=== PATIENT | male | born 1955 | race Caucasian/White ===

== ENCOUNTER 2019-12-15 12:34 | Outpatient (CLI) | payer MEDICARE ==
--- NOTE | 2019-12-15 12:54 | ULT ---
EXAM: US Neck Soft Tissue PROVIDED CLINICAL HISTORY: Neck mass. COMPARISON: None FINDINGS: Limited sonographic evaluation left neck in region of the palpable abnormality was performed. There a re several oval-shaped hypoechoic masses in the left aspect of the neck largest measuring 3.3 cm x 1.2 cm x 1.7 cm likely due to enlarged lymph nodes. Typical echogenic hilum of these lymph nodes is n ot present. IMPRESSION: Enlarged hypoechoic lymph nodes left aspect of the neck likely corresponding to patient's palpable ab normality. CT scan of the neck with IV contrast is recommended for further evaluation.
== END 2019-12-15 12:35 | disposition home or self-care (01) ==
LOC: BICULT 12:34
PROVIDERS: ATTEND Family Medicine
DX: R22.1 Localized swelling, mass and lump, neck (principal)
CPT/HCPCS: 76536

== ENCOUNTER 2020-01-05 09:47 | Day surgery (SDC) | payer MEDICARE ==
[2020-01-04 10:01] VITALS: BMI 28.3
[2020-01-05] MEDS ORDERED: EPINEPHrine 1 MG/ML AMP ONE (11:37)
[2020-01-05] MEDS ORDERED: Fentanyl 250 MCG/5 ML VIAL ONE (11:41)
[2020-01-05] MEDS ORDERED: Dexamethasone 20 MG/5 ML VIAL ONE (12:26)
[2020-01-05] MEDS ORDERED: Rocuronium Bromide 10 MG/ML (10ML VIAL) ONE (12:26)
[2020-01-05] MEDS ORDERED: Glycopyrrolate 0.2 MG/ML 5 ML SYRINGE ONE (12:26)
[2020-01-05] MEDS ORDERED: Ketorolac Tromethamine 30 MG/ML VIAL ONE (12:26)
[2020-01-05] MEDS ORDERED: Ondansetron PF 4 MG/2 ML Vial ONE (12:26)
[2020-01-05] MEDS ORDERED: Lidocaine 1% PF 5 ML VIAL ONE (12:26)
[2020-01-05] MEDS ORDERED: PROPOFOL 200 MG/20 ML VIAL ONE (12:26)
--- NOTE | 2020-01-06 12:48 | OP ---
DATE OF PROCEDURE: 01/05/2020 PREOPERATIVE DIAGNOSIS: Right base of tongue lesion. POSTOPERATIVE DIAGNOSIS: Right base of tongue lesion. PROCEDURE PERFORMED: Microsuspension laryngoscopy with biopsy of right base of tongue lesion. PROCEDURE IN DETAIL: After consent was obtained, the patient was identified and brought to the operating room and placed on the operating room table in supine position. General endotracheal anesthesia was obtained with a jet ventilating endotracheal tube. The patient was positioned for surgery. The patient underwent systematic evaluation of oral cavity, oropharynx, hypopharynx, and larynx. Abnormalities were noted of the right base of tongue and inferior tonsil pole region. A Jo-Rolan mouth gag was placed, and with a 45-degree nasal endoscope, we were able to visualize the tongue base. A plating biopsy forceps was used to obtain the specimen, which was documented to be adequate. We then cauterized the bleeding points and no other abnormalities were appreciated. The patient was awakened, extubated, and taken to recovery room in a stable condition prior to discharge home. Job ID: [id number]
== END 2020-01-05 14:55 | disposition home or self-care (01) ==
LOC: SDC 09:47
PROVIDERS: ATTEND Specialist
PROC: 0CBM8ZX Excision of Pharynx, Via Natural or Artificial Opening Endoscopic, Diagnostic (ICD-10-PCS; principal; 2020-01-05)
DX: C01 Malignant neoplasm of base of tongue (principal); C76.0 Malignant neoplasm of head, face and neck; N40.0 Benign prostatic hyperplasia without lower urinary tract symptoms
CPT/HCPCS: 88305; 88342; J0171; J1100; J1885; J2405; J2704; J3010

== ENCOUNTER 2020-01-26 08:16 | Outpatient (CLI) | payer MEDICARE ==
--- NOTE | 2020-01-26 10:44 | PET ---
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 COMPARISON: None. CORRELATION: CT scan of the neck dated 12/26/2019 and chest, abdomen and pelvis dated 12/28/2019 FINDINGS: There is hypermetabolic activity in the left tongue base mass noted on the CT scan with an SUV of 17. 2. Left-sided level 2 john hypermetabolism is seen within SUV of 15.3. The 5 x 7 mm left level 5 lymph node demonstrates no hypermetabolic activity. No john hypermetabolism is seen in the right side of the neck, chest, axillae, abdomen or pelvis. No hypermetabolic pulmonary nodules liver, adrenal or skeletal lesions are seen. There is physiologic activity in the brain, heart and GI and tracts . The CT scan used for attenuation correction demonstrates no evidence of pleural effusions or ascites. 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
== END 2020-01-26 08:17 | disposition home or self-care (01) ==
LOC: PET 08:16
PROVIDERS: ATTEND Radiology Radiation Oncology
DX: C01 Malignant neoplasm of base of tongue (principal); C77.0 Secondary and unspecified malignant neoplasm of lymph nodes of head, face and neck
CPT/HCPCS: 78815; A9552; 36415; 82565

== ENCOUNTER 2020-02-03 09:29 | Outpatient (CLI) | payer MEDICARE, OTHER ==
--- NOTE | 2020-02-03 10:59 | RAD ---
EXAM: XR Abdomen 1 View/KUB PROVIDED CLINICAL HISTORY: Preop, malignant neoplasm of base of tongue COMPARISON: None FINDINGS: The abdominal bowel gas pattern is nonspecific. There is a 6 mm radiodensity overlying the left sacra l ala, the etiology and significance of which is uncertain. This is likely medial to the course of the left ureter and may reflect material within bowel. No definite radiographically apparent urinary tract calculi. The osseous structures demonstrate no acute findings. IMPRESSION: Nonspecific bowel gas pattern.
[2020-02-04 14:55] LABS: SARS-CoV-2 MS2 Positive; SARS-CoV-2 N Gene Negative; SARS-CoV-2 S Gene Negative; SARS-CoV-2 by NAA Not Detected (NotDetected); SARS-CoV-2 orf1ab Negative
== END 2020-02-03 09:30 | disposition home or self-care (01) ==
LOC: LABBT 09:29 → SCSRAD 09:30
PROVIDERS: ATTEND Internal Medicine Gastroenterology
DX: Z01.818 Encounter for other preprocedural examination (principal); Z20.828 Contact with and (suspected) exposure to other viral communicable diseases; C01 Malignant neoplasm of base of tongue
CPT/HCPCS: 74018; 87635; U0003

== ENCOUNTER 2020-02-08 07:50 | Day surgery (SDC) | payer MEDICARE ==
[2020-02-06 14:46] VITALS: BMI 27.4
[2020-02-08] MEDS ORDERED: Ketorolac Tromethamine 30 MG/ML VIAL ONE (11:22)
[2020-02-08] MEDS ORDERED: PROPOFOL 200 MG/20 ML VIAL ONE (11:22)
[2020-02-08] MEDS ORDERED: Labetalol HCl 100 MG/20 ML VIAL ONE (11:22)
[2020-02-08] MEDS ORDERED: Ondansetron PF 4 MG/2 ML Vial ONE (11:22)
--- NOTE | 2020-02-08 11:35 | OP ---
DATE OF PROCEDURE: 02/08/2020 PROCEDURES PERFORMED: Esophagogastroduodenoscopy with gastrostomy tube placement. PREMEDICATION: Given by Anesthesiology Department. PREPROCEDURE DIAGNOSES: 1. Head and neck cancer. 2. Malignant neoplasm of base of tongue. 3. Dysphagia. POSTPROCEDURE DIAGNOSES: 1. Normal upper endoscopy. 2. Status post placement of 20-Polish gastrostomy feeding tube. DESCRIPTION OF PROCEDURE: Written consents were obtained prior to procedure. After adequate sedation, the forward-viewing endoscope was advanced down the stomach under direct vision to the second portion duodenum. The duodenum appeared normal. Pylorus was patent. The gastric antrum, body, fundus, and cardia all appeared normal. Retroflexion did not show any abnormality. The esophagus appeared normal. The stomach was fully insufflated. A site was selected in the upper medial left upper quadrant with good transillumination and ballottement. The area was cleaned with Betadine and anesthetized with 1% xylocaine. A small incision was made. Trocar was introduced in the gastric lumen. The guidewire was then passed through and grasped with a snare and pulled out along with the endoscope. A 20-Polish gastrostomy tube was then affixed to the guidewire and was then pulled back down into the gastric lumen. The external latch was then firmly secured. Repeat endoscopy confirmed good bumper placement. The patient tolerated the procedure well without any immediate complication. ASSESSMENT: 1. Status post placement of 20-Polish gastrostomy feeding tube. 2. Normal upper endoscopy. RECOMMENDATION: Discharge to home. Job ID: [id number]
== END 2020-02-08 11:35 | disposition home or self-care (01) ==
LOC: SDC 07:50
PROVIDERS: ATTEND Internal Medicine Gastroenterology
PROC: 0DH63UZ Insertion of Feeding Device into Stomach, Percutaneous Approach (ICD-10-PCS; principal; 2020-02-08)
DX: C01 Malignant neoplasm of base of tongue (principal); C77.0 Secondary and unspecified malignant neoplasm of lymph nodes of head, face and neck; K21.9 Gastro-esophageal reflux disease without esophagitis
CPT/HCPCS: 77386; 80053; 82248; 83615; 83735; 84100; 84550; J0690; J1885; J2405; J2704

== ENCOUNTER 2020-03-09 15:05 | Outpatient (CLI) | payer MEDICARE, OTHER ==
[2020-03-12 00:13] LABS: SARS-CoV-2 MS2 Positive; SARS-CoV-2 N Gene Negative; SARS-CoV-2 S Gene Negative; SARS-CoV-2 by NAA Not Detected (Not Detected); SARS-CoV-2 orf1ab Negative
== END 2020-03-09 15:06 | disposition home or self-care (01) ==
LOC: LABBT 15:05
PROVIDERS: ATTEND Radiology Radiation Oncology
DX: R13.12 Dysphagia, oropharyngeal phase (principal); R13.13 Dysphagia, pharyngeal phase; Z20.828 Contact with and (suspected) exposure to other viral communicable diseases
CPT/HCPCS: 87635; U0003

== ENCOUNTER 2020-03-12 10:48 | Outpatient (CLI) | payer MEDICARE ==
--- NOTE | 2020-03-14 15:37 | RAD ---
Modified barium swallow HISTORY: Dysphagia. Feeding difficulties. FINDINGS: Exam was performed by speech pathology with multiple consistencies. Video review is availab le and demonstrates extensive early spill of contrast to the level of the piriform sinuses. On initial swallows, there is deep, very subtle penetration which is not immediately cleared. A tiny maximo unt of silent aspiration is suspected. There is significant pooling with partial clearing upon secondary swallowing. The esophagus below the level of the hypopharynx was not evaluated. Please see separate detailed repo rt from speech pathology.
== END 2020-03-12 10:49 | disposition home or self-care (01) ==
PROVIDERS: ATTEND Radiology Radiation Oncology
DX: I69.891 Dysphagia following other cerebrovascular disease (principal); R13.12 Dysphagia, oropharyngeal phase; R63.3 Feeding difficulties
CPT/HCPCS: 74230

== ENCOUNTER 2020-07-05 08:47 | Outpatient (CLI) | payer MEDICARE ==
--- NOTE | 2020-07-05 11:25 | PET ---
Radionucleotide PET scan with CT attenuation correction HISTORY: Malignant neoplasm base of tongue. Restaging. COMPARISON: 01/26/2020. FINDINGS: At the left tongue base, no hypermetabolic activity is now present. Slightly increased acti vity at the right tongue base, max SUV 4.1, is likely reactive. No associated mass. No abnormal uptake is associated cervical lymph nodes. None are enlarged. Activity just to the right of midline posteriorly at the level of the larynx may be related to radiat ion reaction or muscular phonation. No associated mass. Reactive uptake at the left upper quadrant anterior abdominal wall around the PEG insertion site show s max SUV 3.3. The tiny parenchymal lung nodules on CT exam from 12/28/2019 are not well visualized on the current no ndiagnostic CT attenuation correction images. They are below the size threshold for PET detection, but no abnormal activity is apparent. CT images again demonstrate fat protruding into small bilateral inguinal hernias that do not contain bowel. IMPRESSION : Interval resolution of activity associated with the tongue base mass and left cervical adenopathy. No evidence of residual or new hypermetabolic neoplasm..
== END 2020-07-05 08:48 | disposition home or self-care (01) ==
LOC: PET 08:47
PROVIDERS: ATTEND Radiology Radiation Oncology
DX: C01 Malignant neoplasm of base of tongue (principal)
CPT/HCPCS: 78815; A9552